=== PATIENT | female | born 1925 | race African-American/Black ===

== ENCOUNTER 2016-09-25 16:24 | Emergency (ER) | payer MEDICARE, OTHER ==
[2016-09-25 13:08] LABS: BASOPHILS 0.4 %; BASOPHILS ABSOLUTE 0.02 10/3/uL (0.0-0.16); EOSINOPHILS 2.6 %; EOSINOPHILS ABSOLUTE 0.12 10/3/uL (0.0-0.53); HEMATOCRIT 38.7 % (36.0-48.0); HEMOGLOBIN 12.8 g/dL (12.0-16.0); IMMATURE GRANULOCYTES 0.2 %; IMMATURE GRANULOCYTES ABSOLUTE 0.01 10/3/uL (0.0-0.11); LYMPHOCYTES 25.3 %; LYMPHOCYTES ABSOLUTE 1.18 10/3/uL (0.67-4.30); MEAN CORPUS HGB CONC 33.1 g/dL (32.0-36.0); MEAN CORPUSCULAR HEMOGLOB 30.6 pg (26.0-34.0); MEAN PLATELET VOLUME 11.7 fL (9.2-13.0); MONOCYTES 7.1 %; MONOCYTES ABSOLUTE 0.33 10/3/uL (0.21-1.20); NEUTROPHILS 64.4 %; NEUTROPHILS ABSOLUTE 3.01 10/3/uL (2.02-8.40); PLATELET COUNT 203 10/3/uL (150-400); RBC DISTRIBUTION WIDTH 15.3 % (12.0-16.0); RED CELL COUNT 4.18 10/6/uL (4.0-5.6); WHITE BLOOD CELLS 4.7 10/3/uL (4.5-10.5)
[2016-09-25 13:09] LABS: MANUAL DIFF NO %; MEAN CORPUSCULAR VOLUME 92.6 fL (80-100)
[2016-09-25 13:23] LABS: BUN (BLOOD UREA NITROGEN) 18 MG/DL (6-23); CHLORIDE, SERUM 109 MMOL/L (96-112); CO2 (CARBON DIOXIDE) 31 MMOL/L (24-34); CREATININE 0.92 MG/DL (0.55-1.02); GFR AFRICAN AMERICAN 64 ML/MIN (>=60); GFR NON AFRICAN AMERICAN 55 ML/MIN (>=60); GLUCOSE, SERUM 88 MG/DL (60-99); SODIUM, SERUM 145 MMOL/L (135-148)
[2016-09-25 13:24] LABS: POTASSIUM, SERUM 4.6 MMOL/L (3.5-5.3)
[2016-09-25 13:25] LABS: CALCIUM, SERUM 9.4 MG/DL (8.5-10.4)
[~2016-09-25 16:24] MED LIST: ASAB PO; BRILINTA90 MG PO; CLARIT10 PO; CORDARONE PO; HALF81 PO; KDUR20 PO; KLOR-CON M2020 MEQ PO; L40 PO; LEVOTHROID25 MCG PO; LEVOTHYROXIN25 MCG PO; LIPITOR40 PO; LISINOPRIL40 MG PO; LOP25 PO; PAX10 PO; PROTONIX PO; REFRES1 OPH; REFRESH OPH SO0.3 ML OPH; VISINE0.05 % OPH
== END 2016-09-25 17:30 | disposition home or self-care (01) ==
LOC: ER 16:24
PROVIDERS: Emergency Medicine
DX: H81.12 Benign paroxysmal vertigo, left ear (principal); J45.909 Unspecified asthma, uncomplicated; I48.91 Unspecified atrial fibrillation; Z95.5 Presence of coronary angioplasty implant and graft; D64.9 Anemia, unspecified; Z87.442 Personal history of urinary calculi; Z88.5 Allergy status to narcotic agent; Z88.8 Allergy status to other drugs, medicaments and biological substances; Z79.82 Long term (current) use of aspirin; Z79.899 Other long term (current) drug therapy
CPT/HCPCS: 70450; 80048; 85025; 93005; 99284